=== PATIENT | female | born 1950 | race Caucasian/White ===

== ENCOUNTER 2017-05-17 07:28 | Emergency (ER) | payer BC, OTHER ==
--- NOTE | 2017-05-17 08:12 | RAD REPORT ---
EXAM DESCRIPTION: RAD - Wrist Left 3 View - 05/17/2017 8:06 am CLINICAL HISTORY: Slip and fall, wrist pain COMPARISON: None. FINDINGS: Comminuted fracture of the distal radius is present. There is transverse fracture in the m etaphyseal region of the distal radius. An additional sagittal oriented fracture plane extends to the articular surface. There is impaction along the dorsal margin with 30 degrees dorsal angulation of t he distal fracture fragment. Ulna styloid is fractured. Carpal bones maintain positioning with the di stal radial fracture fragment. No pathologic component. IMPRESSION: Comminuted distal radius fracture with dorsal impaction and angulation.
[2017-05-17] MEDS ORDERED: HYDROCODONE/APAP 5/325 MG TAB ONE (08:14)
--- NOTE | 2017-05-17 09:35 | ER ---
Nurse's Notes [facility] Name: Mary Jo Osei Age: 67 yrs Sex: Female : 1950 Arrival Date: 05/17/2017 Time: 07:29 Bed 5 Private MD: Chava White E Diagnosis: Comminuted Left Distal Radius Fracture Presentation: 05/17 07:36 Presenting complaint: Patient states: L wrist pain after slipping on steps coming out of trailer this morning. Transition of care: patient was not received from another setting of care. Onset of symptoms was May 17, 2017. Care prior to arrival: None. 07:36 Method Of Arrival: Ambulatory ss 07:36 Acuity: MARY 4 ss Triage Assessment: 07:53 Injury Description: patient states she fell coming down the stairs of her fifth wheel ap3 home, and landed anteriorly. She denies any dizziness prior to the fall. Also denies a loss of consciousness. Historical: - Allergies: 07:37 PENICILLINS; ss 07:37 Sulfa (Sulfonamide Antibiotics); ss - Home Meds: 07:41 Lipitor Oral [Active]; Pradaxa oral oral [Active]; ae1 07:50 valsartan 160 mg oral tab 1 tab 2 times per day [Active]; Celexa 20 mg Oral tab 2 tabs ae1 once daily [Active]; 08:36 hydrocodone-acetaminophen Oral [Active]; ae1 - PMHx: 07:41 Atrial Fib; Hyperlipidemia; Hypertension; ae1 - PSHx: 07:50 Appendectomy; Hysterectomy; left foot surgery; ae1 - Immunization history:: Pneumococcal vaccine is not up to date, Flu vaccine is not up to date. - Social history:: Smoking status: Patient uses tobacco products, smokes one-half pack cigarettes per day. - Family history:: not pertinent. - Hospitalizations: : No recent hospitalization is reported. Screenin:50 Abuse screen: Denies threats or abuse. Nutritional screening: No deficits noted. ae1 Tuberculosis screening: No symptoms or risk factors identified. Fall Risk Fall in past 12 months (25 points). No secondary diagnosis (0 pts). No IV (0 pts). Ambulatory Aid- None/Bed Rest/Nurse Assist (0 pts). Gait- Normal/Bed Rest/Wheelchair (0 pts) Mental Status- Oriented to own ability (0 pts). Assessment: 07:48 General: Appears uncomfortable, well groomed, Behavior is calm, cooperative. Pain: ap3 Complains of pain in left wrist Pain currently is 5 out of 10 on a pain scale. at worst was 6 out of 10 on a pain scale. Pain began about 0630 Aggravated by movement Noted to be cradling wrist Also complains of slight tingling in left fingers. Neuro: Level of Consciousness is awake, alert, obeys commands, Oriented to person, place, time, situation. Cardiovascular: Heart tones S1 S2 present Rhythm is irregular. Respiratory: Airway is patent Breath sounds are clear bilaterally. GI: Abdomen is round Bowel sounds present X 4 quads. : No signs and/or symptoms were reported regarding the genitourinary system. :. EENT: No signs and/or symptoms were reported regarding the EENT system. Derm: Skin is pink, warm \T\ dry. Musculoskeletal: Reports pain in left wrist. 07:56 Reassessment: radiology at bedside. ae1 09:01 Reassessment: Patient and/or family updated on plan of care and expected duration. Pain jl7 level reassessed. Patient is alert, oriented x 3, equal unlabored respirations, skin warm/dry/pink. Vital Signs: 07:37 BP 171 / 98; Pulse 50; Resp 18; Pulse Ox 96% on R/A; Weight 93.89 kg; Height 5 ft. 6 ss in. (167.64 cm); Pain 6/10; 07:38 Temp 98.1(O); ae1 08:30 BP 133 / 96; Pulse 67; Resp 16 S; Pulse Ox 97% on R/A; jl7 08:59 BP 130 / 68; Pulse 65; Resp 16 S; Pulse Ox 99% on R/A; jl7 09:47 BP 143 / 79; Pulse 64; Resp 17; Pulse Ox 99% on R/A; ae1 07:37 Body Mass Index 33.41 (93.89 kg, 167.64 cm) ED Course: 07:29 Patient arrived in ED. as 07:29 Chava White MD is Private Physician. as 07:31 William Perez, GABRIEL is Primary Nurse. ae1 07:32 Chava Clark MD is Attending Physician. wa 07:36 Triage completed. ss 07:37 Arm band placed on right wrist. ss 07:42 Bed in low position. Call light in reach. Side rails up X 1. Pulse ox on. NIBP on. ae1 08:06 X-ray completed. Portable x-ray completed in exam room. kw 09:33 Sanchez Ferreira MD is Referral Physician. wa 10:21 No provider procedures requiring assistance completed. Patient did not have IV access ae1 during this emergency room visit. Administered Medications: 08:35 Drug: [place] 5 mg-325 mg 1 tabs Route: PO; jl7 09:47 Follow up: Response: Pain is decreased ae1 Outcome: 09:35 Discharge ordered by . wa 09:48 Attestation : I agree with the charting and assessment done by chele Sandoval cardiopulmonary specialist. . 10:21 Discharged to home ambulatory. ae1 10:21 Condition: stable 10:21 Discharge instructions given to patient, Instructed on discharge instructions, Demonstrated understanding of instructions, Prescriptions given X 1. 10:22 Patient left the ED. ae1 Signatures: Licha Plata Shelby, GABRIEL RN [place] William Perez RN RN ae1 Ally Yi RN RN jl7 Chava Clark MD MD wa Prokisch, Amanda ap3
--- NOTE | 2017-05-17 09:36 | EDPHYS ---
Physician Documentation [facility] Name: Mary Jo Osei Age: 67 yrs Sex: Female : 1950 Arrival Date: 05/17/2017 Time: 07:29 Bed 5 Private MD: Chava White E ED Physician Chava Clark HPI: 05/17 07:48 This 67 yrs old Female presents to ER via Ambulatory with complaints of Wrist wa Injury. 07:48 The patient or guardian reports injury, pain, swelling, tenderness. The complaints wa affect the left wrist diffusely. Context: The problem was sustained at home, resulted from a fall. Onset: The symptoms/episode began/occurred just prior to arrival. Modifying factors: The symptoms are alleviated by nothing, the symptoms are aggravated by movement. Associated signs and symptoms: Pertinent negatives: decreased sensation distally, numbness distally, tingling distally. Compartment Syndrome negative for. The patient has not experienced similar symptoms in the past. The patient has not recently seen a physician. states had no symptoms prior to fall. denies dizziness, CP, or SOB. Takes perdaxa for Afib. Historical: - Allergies: 07:37 PENICILLINS; ss 07:37 Sulfa (Sulfonamide Antibiotics); ss - Home Meds: 07:41 Lipitor Oral [Active]; Pradaxa oral oral [Active]; ae1 07:50 valsartan 160 mg oral tab 1 tab 2 times per day [Active]; Celexa 20 mg Oral tab 2 tabs ae1 once daily [Active]; 08:36 hydrocodone-acetaminophen Oral [Active]; ae1 - PMHx: 07:41 Atrial Fib; Hyperlipidemia; Hypertension; ae1 - PSHx: 07:50 Appendectomy; Hysterectomy; left foot surgery; ae1 - Immunization history:: Pneumococcal vaccine is not up to date, Flu vaccine is not up to date. - Social history:: Smoking status: Patient uses tobacco products, smokes one-half pack cigarettes per day. - Family history:: not pertinent. - Hospitalizations: : No recent hospitalization is reported. ROS: 07:54 Constitutional: Negative for fever, chills, and weight loss, Eyes: Negative for injury, wa pain, redness, and discharge, ENT: Negative for injury, pain, and discharge, Neck: Negative for injury, pain, and swelling, Cardiovascular: Negative for chest pain, palpitations, and edema, Respiratory: Negative for shortness of breath, cough, wheezing, and pleuritic chest pain, Abdomen/GI: Negative for abdominal pain, nausea, vomiting, diarrhea, and constipation, Back: Negative for injury and pain, : Negative for injury, bleeding, discharge, and swelling, Skin: Negative for injury, rash, and discoloration, Neuro: Negative for headache, weakness, numbness, tingling, and seizure. 07:54 MS/extremity: Positive for injury or acute deformity, swelling, tenderness, of the left wrist. 07:54 All other systems are negative. Exam: 07:55 Hand exam: Exam is positive for deformity, injury, swelling, tenderness, L wrist. wa tender. mild deformity. swelling. 2+ radial pulses palpated. 07:55 Skin: Appearance: Color: normal in color. 07:55 Constitutional: This is a well developed, well nourished patient who is awake, alert, and in no acute distress. Head/Face: Normocephalic, atraumatic. Eyes: Pupils equal round and reactive to light, extra-ocular motions intact. Lids and lashes normal. Conjunctiva and sclera are non-icteric and not injected. Cornea within normal limits. Periorbital areas with no swelling, redness, or edema. ENT: Nares patent. No nasal discharge, no septal abnormalities noted. Tympanic membranes are normal and external auditory canals are clear. Oropharynx with no redness, swelling, or masses, exudates, or evidence of obstruction, uvula midline. Mucous membranes moist. Neck: Trachea midline, no thyromegaly or masses palpated, and no cervical lymphadenopathy. Supple, full range of motion without nuchal rigidity, or vertebral point tenderness. No Meningismus. Cardiovascular: Regular rate and rhythm with a normal S1 and S2. No gallops, murmurs, or rubs. Normal PMI, no JVD. No pulse deficits. Respiratory: Lungs have equal breath sounds bilaterally, clear to auscultation and percussion. No rales, rhonchi or wheezes noted. No increased work of breathing, no retractions or nasal flaring. Abdomen/GI: Soft, non-tender, with normal bowel sounds. No distension or tympany. No guarding or rebound. No evidence of tenderness throughout. Back: No spinal tenderness. No costovertebral tenderness. Full range of motion. Skin: Warm, dry with normal turgor. Normal color with no rashes, no lesions, and no evidence of cellulitis. Neuro: Awake and alert, GCS 15, oriented to person, place, time, and situation. Cranial nerves II-XII grossly intact. Motor strength 5/5 in all extremities. Sensory grossly intact. Cerebellar exam normal. Normal gait. Psych: Awake, alert, with orientation to person, place and time. Behavior, mood, and affect are within normal limits. Vital Signs: 07:37 BP 171 / 98; Pulse 50; Resp 18; Pulse Ox 96% on R/A; Weight 93.89 kg; Height 5 ft. 6 ss in. (167.64 cm); Pain 6/10; 07:38 Temp 98.1(O); ae1 08:30 BP 133 / 96; Pulse 67; Resp 16 S; Pulse Ox 97% on R/A; jl7 08:59 BP 130 / 68; Pulse 65; Resp 16 S; Pulse Ox 99% on R/A; jl7 09:47 BP 143 / 79; Pulse 64; Resp 17; Pulse Ox 99% on R/A; ae1 07:37 Body Mass Index 33.41 (93.89 kg, 167.64 cm) ss Procedures: 09:31 Splinting: Splint applied to left wrist using Orthoglass splint, applied by nurse. wa Examined by me, post splint application: neurovascular intact, 2+ distal pulses palpable, brisk capillary refill noted, Patient tolerated well, sling applied. MDM: 07:32 Patient medically screened. nm 07:56 Differential diagnosis: dislocation, closed fracture, contusion, fx/dislocation. pain wa control. xrays. 09:27 Data reviewed: vital signs, nurses notes, radiologic studies. Test interpretation: by nm ED physician or midlevel provider: L wrist xray: comminuted L distal radius fracture with mild impaction. Response to treatment: the patient's symptoms have markedly improved after treatment. Special discussion: place sugar-tong splint. advised f/u with her orthopedist . 05/17 07:43 Order name: Wrist Left (3 View) XRAY nm 05/17 08:12 Order name: RAD; Complete Time: 08:46 EDMT 05/17 08:46 Order name: Sling: place LUE sugatong splint. place sling; Complete Time: 09:12 elizabeth Administered Medications: 08:35 Drug: [place] 5 mg-325 mg 1 tabs Route: PO; jl7 09:47 Follow up: Response: Pain is decreased ae1 Disposition: 05/17/17 09:35 Discharged to Home. Impression: Comminuted Left Distal Radius Fracture. - Condition is Stable. - Prescriptions for Tramadol 50 mg Oral Tablet - take 1 tablet by ORAL route every 8 hours as needed; 30 tablet. - Medication Reconciliation Form, Thank You Letter, Antibiotic Education, Prescription Opioid Use form. - Follow up: Sanchez Ferreira MD; When: 1 - 2 days; Reason: further evaluation and definitive treatment. - Problem is new. - Symptoms have improved. - Notes: follow up with Dr. Ferreira within rthe next 48 hours, This injury may requuire surgery Signatures: Dispatcher [employer] EDMS Ruchi Jose RN RN ss William Perez RN RN ae1 Ally Yi RN RN jl7 Chava Clark MD MD wa
== END 2017-05-17 10:22 | disposition home or self-care (01) ==
LOC: ER 07:28
PROC: 2W3DX1Z Immobilization of Left Lower Arm using Splint (ICD-10-PCS; principal; 2017-05-17)
DX: S52.502A Unspecified fracture of the lower end of left radius, initial encounter for closed fracture (principal); W19.XXXA Unspecified fall, initial encounter; Y93.9 Activity, unspecified; Y92.009 Unspecified place in unspecified non-institutional (private) residence as the place of occurrence of the external cause; Z88.0 Allergy status to penicillin; Z88.2 Allergy status to sulfonamides; Z79.01 Long term (current) use of anticoagulants; I10 Essential (primary) hypertension; E78.5 Hyperlipidemia, unspecified; I48.91 Unspecified atrial fibrillation; F17.210 Nicotine dependence, cigarettes, uncomplicated
CPT/HCPCS: 99283

== ENCOUNTER 2017-05-24 11:53 | Day surgery (SDC) | payer BC, OTHER ==
--- NOTE | 2017-05-20 09:11 | EKG ---
Test Date: 2017-05-20 Test Time: 09:05:23 Freight Rate Clerk: FREDDY MEASUREMENT RESULTS: Intervals: Rate: 58 [place]: QRSD: 86 QT: 450 QTc: 441 [place]: P: [place]: QRS: -23 T: 12 INTERPRETIVE STATEMENTS: Atrial fibrillation with slow ventricular response Nonspecific ST abnormality, probably digitalis effect Abnormal ECG Compared to ECG 02/06/2007 11:17:00 ST (T wave) deviation now present Sinus bradycardia no longer present Sinus arrhythmia no longer present Electronically Signed On 05-20-17 09:10:58 CDT by Twan Raymond
--- NOTE | 2017-05-20 09:22 | RAD REPORT ---
EXAM DESCRIPTION: RADOP - Outpt Chest Pa/Lat (2 Views) - 05/20/2017 9:15 am CLINICAL HISTORY: Preop chest, pending wrist surgery COMPARISON: None. TECHNIQUE: PA and lateral views of the chest were obtained. FINDINGS: The lungs are clear of mass, failure or focal infiltrate. Interstitial markings are mildly prominent as a baseline. Diaphragmatic eventration changes are present. Heart size is normal and ce ntral vasculature is within normal limits. No pneumothorax. True pleural effusion is not suspected. A ccentuated kyphosis is seen in the upper thoracic spine. No acute aortic finding. IMPRESSION: No acute cardiopulmonary process.
[2017-05-20 10:14] LABS: Absolute Lymphocytes (CBC) 1.6 K/uL (0.7-4.9); Absolute Monocytes 0.6 K/uL (0.1-1.3); Absolute Neutrophil 3.7 K/uL (1.8-8.0); Basophils % 0.7 % (0-1.3); Eosinophils % 2.2 % (0-4.4); Lymphocytes % 25.7 % (15.3-44.8); MCH 33.4 pg (27.0-35.0); MCV 97.3 fL (80-100); MPV 10.3 fL (7.6-11.3); Monocytes % 10.2 % (3.3-12.3); RBC Red Blood Cell Count 3.91 M/uL (3.86-4.86)
[2017-05-20 10:21] LABS: Protime INR 0.97
[2017-05-20 10:33] LABS: Urine Appearance CLEAR; Urine Bilirubin NEGATIVE (NEG); Urine Blood 3+ (NEG); Urine Color YELLOW; Urine Glucose NEGATIVE (NEG); Urine Protein NEGATIVE (NEG)
[2017-05-20 10:35] LABS: Urine Microscopic Reflex ORDER UMIC
[2017-05-20 10:54] LABS: Urine Bacteria 20-50 /HPF (<20); Urine RBC >50 /HPF (NONE SEEN)
[2017-05-20 10:55] LABS: Urine Culture Reflex Order NOT NEEDED
[2017-05-20 11:27] LABS: Albumin 3.7 g/dL (3.2-5.5); Bilirubin Direct 0.2 mg/dL (0-0.2); Bilirubin Total 1.1 mg/dL (0.3-1.2); Protein, Total 6.9 g/dL (6.0-8.3)
[2017-05-20 11:29] LABS: Albumin 3.8 g/dL (3.2-5.5); Bilirubin Total 1.1 mg/dL (0.3-1.2); Potassium 3.8 mEq/L (3.6-5.0); Protein, Total 6.8 g/dL (6.0-8.3)
[2017-05-24] MEDS ORDERED: Ringers Lactate 1,000 ML IV ONE ×2 (12:47→16:33)
[2017-05-24] MEDS ORDERED: BUPIVACAINE 0.25% PF 10 ML VIAL ONE (13:28)
[2017-05-24] MEDS ORDERED: LIDOCAINE 1% MPF 5 ML VIAL ONE (13:36)
[2017-05-24] MEDS ORDERED: PROPOFOL 200 MG/20 ML VIAL IV ONE (13:36)
[2017-05-24] MEDS ORDERED: FENTANYL CITR 100 MCG/2 ML ONE (13:36)
[2017-05-24] MEDS ORDERED: MIDAZOLAM HCL 2 MG/2 ML INJ ONE (13:36)
[2017-05-24] MEDS ORDERED: CEFAZOLIN/SWI 1gm 1 GM/10 ML SYR ONE (13:45)
[2017-05-24] MEDS ORDERED: MORPHINE 10 MG/ML VIAL ONE (15:46)
[2017-05-24] MEDS ORDERED: ONDANSETRON 4 MG/2 ML VIAL ONE (16:31)
[2017-05-24] MEDS ORDERED: KETOROLAC 30 MG/ML INJ ONE (16:31)
[2017-05-24] MEDS: MEPERIDINE HCL 25 MG/0.5 ML ONE ×2 (16:45→16:55)
[2017-05-24] MEDS: MEPERIDINE HCL 50 MG/ML AMP ONE ×2 (17:05→17:14)
--- NOTE | 2017-05-24 18:52 | RAD REPORT ---
EXAM DESCRIPTION: RAD - Wrist Left 2 View - 05/24/2017 6:15 pm FINDINGS: Left wrist fluoroscopy performed. Multiple portable C-arm views were obtained during fluoroscopic assisted placement of fracture fixati on hardware. No suspicious or unexpected findings.
--- NOTE | 2017-05-26 19:55 | P.BOP ---
Preoperative diagnosis: COMMINUTED COLLES FRACTURE LEFT WRIST Postoperative diagnosis: SAME Primary procedure: CLOSED REDUCTION WITH APPLICATION OF EXT. FIXATION L. AYALA FX Analysis Engineer: Sanchez Ferreira Estimated blood loss: <5mL Specimen: NONE Findings: REDUCTION IMPROVED Anesthesia: General Complications: None Implants: 4 THREADED EX/FIX PINS; 2 TRACTION BARS; 2 EX/FIX PIN CLAMPS Fluids & blood products: INJECTED INCISIONS FOR PIN INSERTIONS WITH 20 mL 0.25% MARCAINE PLAIN Transferred to: Recovery Room Condition: Good
--- NOTE | 2017-05-27 05:15 | OP ---
Date of Procedure: 05/24/2017 Surgeon: Sanchez Ferreira MD [place] Observer: Sanchez Ferreira M.D. Preoperative Diagnosis: Comminuted Colles fracture, left wrist, with inadequate reduction in long-ar m cast. Postoperative Diagnosis: Comminuted Colles fracture, left wrist, with inadequate reduction in long-a rm cast. Procedure: Closed reduction of the left wrist Colles fracture with application of external fixation. Indications: This 67-year-old female fell coming out of her RV to injure her left wrist on 8. She was seen and x-rayed at [facility] ED, where she was placed in a coaptation splint. With a f racture hematoma block, the patient was treated with a closed reduction and long-arm cast application on 05/19/2017. The patient's reduction was inadequate as there was significant comminution of the f racture and the patient has been medically cleared and scheduled for application of an external fixat or under general anesthesia. The patient is aware of risks and benefits and has elected to proceed. Technique: The patient was taken to the operating room and given a general anesthetic. The left upp er extremity had a tourniquet applied. The tourniquet was elevated after exsanguination of the limb with an Esmarch bandage. The tourniquet was raised to 250 mmHg. The left upper extremity was preppe d and draped in the usual manner. The smallest of the fixation pins in the external fixator Laurita s et were chosen for insertion into the base of the second metacarpal, left hand. After a 0.5-cm incis ion was made longitudinally, a hemostat was used to clear soft tissue down to bone and a self-tapping threaded external fixation pin was chosen. It was the smallest pin in the set made for metacarpal i nsertion. The pin was self-tapping and the power drill was used to drive the pin into position. The pin clamps were positioned, so that the second incision could be made more distal than the first at the appropriate position for producing parallel pins that would fit into the apparatus. Again, a 0.5 -cm incision was made over the mid shaft area of the second metacarpal and the hemostat was used to c lear soft tissue and then the pin was drilled into position, and the appropriate pin clamp was applie d. Moving proximally to the juncture between the middle and distal thirds of the radius, again 2 lucila gitudinal incisions 0.5 cm in length were made and a hemostat was used to clear soft tissue down to b one and with the appropriate sleeve device, the threaded pin was drilled into the radial shaft with 2 parallel pins in the appropriate distance apart for applying the clamp designed for the external fix ation traction rods. Once the pins were in place and the pin clamps were in place as well, then redu ction was carried out and the reduction was verified as acceptable by utilization of the C-arm. The reduction was held in position while bars were placed between the pin clamps on the 2 pins in the sec ond metacarpal and the 2 pins in the radial shaft. This provided traction across the fracture site a nd all clamps were tightened to hold the traction bars and ex fix pins in the pin clamp apparatus pro vided in the Laurita external fixation set. The C-arm visualization of lateral and AP views was quite acceptable. Then, the small incisions for pin insertions were each closed with an individual interr upted simple stitch of 4-0 nylon to reduce the size of the opening and encourage sealing of the pin a nd skin interface. Xeroform gauze was wrapped around each pin and pressed down against the incision. A 4x4 gauze was placed around the pins distally and proximally with additional 4x4s applied between the traction bars to compress against the pin track sites. Then, soft roll and an Og wrap were jurgen lied and the patient's left upper extremity was placed in an arm sling and [facility] having tolerated this procedure well. A 20 mL of 0.25% Marcaine plain were injected into th e pin tracts before the bandage was applied. Estimated blood loss was less than 5 mL. The tournique t was up at 250 mmHg for 66 minutes. CIRA/NICOLE Voice ID: [id number] Report ID: [id number]
== END 2017-05-24 18:05 | disposition home or self-care (01) ==
LOC: OR 11:53
PROVIDERS: ATTEND Orthopaedic Surgery
PROC: 0PSJXZZ Reposition Left Radius, External Approach (ICD-10-PCS; 2017-05-24)
PROC: 0PSJXZZ Reposition Left Radius, External Approach (ICD-10-PCS; principal; 2017-05-24 13:00)
DX: S52.532A Colles' fracture of left radius, initial encounter for closed fracture (principal); M81.0 Age-related osteoporosis without current pathological fracture; I10 Essential (primary) hypertension; K21.9 Gastro-esophageal reflux disease without esophagitis; F17.200 Nicotine dependence, unspecified, uncomplicated; Z88.2 Allergy status to sulfonamides; Z88.0 Allergy status to penicillin; Z82.49 Family history of ischemic heart disease and other diseases of the circulatory system
CPT/HCPCS: 36415; 71046; 80053; 80076; 81003; 81015; 85025; 85610; 85730; 93005; J0690; J2175; J2250; J2405; J3010